=== PATIENT | female | born 1960 ===

== ENCOUNTER 2017-10-12 22:35 | Emergency (ER) | payer MEDICAID, OTHER ==
[2017-10-12 22:44] VITALS: PULSE 87; RESP 20
--- NOTE | 2017-10-12 23:09 | C.PDOC ---
History Of Present Illness 56 year old female, whose PMHx includes HTN, presents to the ED for evaluation of left lower quadrant abdominal pain which began after she ate some meat prior to arrival. Patient denies fever, chills, vomiting, or any other complaints at this time. Time Seen by Provider: 10/12/17 22:51 Chief Complaint (Nursing): Abdominal Pain History Per: Patient History/Exam Limitations: no limitations Onset/Duration Of Symptoms: Hrs Current Symptoms Are (Timing): Still Present Context: Food Location Of Pain/Discomfort: LLQ Radiation Of Pain To:: None Quality Of Discomfort: "Pain" Associated Symptoms: denies: Fever, Chills Exacerbating Factors: Food Additional History Per: Patient Abnormal Vaginal Bleeding: No Past Medical History Reviewed: Historical Data, Nursing Documentation, Vital Signs Vital Signs: Last Vital Signs Temp 99 F 10/12/17 23:48 Pulse 87 10/12/17 23:48 Resp 20 10/12/17 23:48 BP 160/93 H 10/12/17 23:48 Pulse Ox 98 10/13/17 00:28 - Medical History PMH: HTN Surgical History: No Surg Hx - [facility] Procedures PERCUTAN NEEDLE BIOPSY OF BREAST (02/13/14) X-RAY NEC AND NOS (02/13/14) Family History: States: Unknown Family Hx - Social History Hx Alcohol Use: No Hx Substance Use: No - Immunization History Hx Tetanus Toxoid Vaccination: No Hx Influenza Vaccination: No Hx Pneumococcal Vaccination: No Review Of Systems Constitutional: Negative for: Fever, Chills Gastrointestinal: Positive for: Abdominal Pain (left lower quadrant ). Negative for: Nausea, Vomiting Physical Exam - Physical Exam Appears: Non-toxic, No Acute Distress Skin: Normal Color, Warm, Dry Oral Mucosa: Moist Neck: Supple Chest: Symmetrical, No Deformity, No Tenderness Cardiovascular: Rhythm Regular, No Murmur Respiratory: Normal Breath Sounds, No Rales, No Rhonchi, No Wheezing Gastrointestinal/Abdominal: Soft, Tenderness (left lower quadrant), No Guarding , No Rebound Extremity: Normal ROM, Capillary Refill (less than 2 seconds ) Neurological/Psych: Oriented x3, Normal Speech, Normal Cognition Gait: Steady ED Course And Treatment - Laboratory Results Result Diagrams: 10/12/17 23:10 10/12/17 23:10 O2 Sat by Pulse Oximetry: 98 (on RA) Pulse Ox Interpretation: Normal Medical Decision Making Medical Decision Making: ro divertiulitis, colitis renal stone Plan: * bloodwork * urinalysis * Toradol IVP * reassess and disposition Progress: Bloodwork and urinalysis ordered and reviewed. Toradol IVP administered. 1220: pt reassesed pain free Disposition - Disposition Referrals: Sabrina Huff MD [Staff Provider] - Valdez Huff MD [Staff Provider] - Disposition: HOME/ ROUTINE Disposition Time: 00:30 Condition: STABLE Additional Instructions: please see specialist. return to er with worsening symptoms or concerns. Prescriptions: Ibuprofen [Motrin Tab] 600 mg PO Q8 PRN #15 tab PRN Reason: Pain, Moderate (4-7) Tamsulosin [Flomax] 0.4 mg PO DAILY #10 cap Instructions: Kidney Stones (DC), Acute Abdominal Pain (ED) Forms: Who[employer] (Czech) Print Language: AMHARIC - Clinical Impression Clinical Impression: Abdominal pain - Scribe Statement The provider has reviewed the documentation as recorded by the Scribe (Nasra Keller) Provider Attestation: All medical record entries made by the Scribe were at my direction and personally dictated by me. I have reviewed the chart and agree that the record accurately reflects my personal performance of the history, physical exam, medical decision making, and the department course for this patient. I have also personally directed, reviewed, and agree with the discharge instructions and disposition.
[2017-10-12 23:16] LABS: BASO # 0.1 K/uL (0.0-0.2); EOS # 0.3 K/uL (0.0-0.7)
[2017-10-12 23:20] LABS: HCG,QUALITATIVE URINE NEGATIVE (NEGATIVE)
[2017-10-12 23:21] LABS: BASO % 1.3 % (0.0-2.0); EOS % 3.2 % (0.0-4.0); HEMOGLOBIN 12.4 g/dL (11.0-16.0); LYMPH # 3.2 K/uL (1.0-4.3); LYMPH % 37.5 % (20.0-40.0); MEAN CELL VOLUME 93.1 fL (81.0-99.0); MEAN CORPUSCULAR HEMOGLOBIN 32.6 pg (27.0-31.0); MEAN PLATELET VOLUME 10.2 fL (7.2-11.7); MONO % 11.8 % (0.0-10.0); NEUT # 3.9 K/uL (1.8-7.0); NEUT % 46.2 % (50.0-75.0); RBC 3.82 Mil/uL (3.80-5.20); RED CELL DISTRIBUTION WIDTH 13.2 % (11.5-14.5); WHITE BLOOD COUNT 8.5 K/uL (4.8-10.8)
[2017-10-12 23:25] LABS: PROTHROMBIN TIME 11.1 SECONDS (9.7-12.2)
[2017-10-12 23:28] LABS: ALB/GLOB RATIO 1.1 (1.0-2.1); ALBUMIN 4.6 g/dL (3.5-5.0); ALT/SGPT 37 U/L (9-52); AST/SGOT 57 U/L (14-36); BLOOD UREA NITROGEN 29 mg/dL (7-17); CALCIUM 8.9 mg/dl (8.6-10.4); GFR AFRICAN-AMERICAN > 60; GFR NON-AFRICAN AMERICAN > 60; LIPASE 141 U/L (23-300)
[2017-10-12 23:41] LABS: SQUAMOUS EPITHIAL 2 /hpf (0-5); URINE BACTERIA RARE (<OCC); URINE BILIRUBIN NEGATIVE (NEGATIVE); URINE BLOOD 2+ (NEGATIVE); URINE CLARITY Clear (Clear); URINE COLOR Straw (YELLOW); URINE GLUCOSE (UA) NORMAL (Normal); URINE LEUKOCYTE ESTERASE NEG Leu/uL (Negative); URINE NITRATE NEGATIVE (NEGATIVE); URINE PROTEIN NEGATIVE (NEGATIVE); URINE UROBILINOGEN NORMAL mg/dL (0.2-1.0)
[2017-10-12] MEDS ORDERED: Iohexol 350mg/ml 100 ML ONE (23:44)
[2017-10-12 23:49] VITALS: BP 160/93; TEMP 99
[2017-10-13 00:28] VITALS: O2SAT 98
--- NOTE | 2017-10-13 00:29 | CT ---
EXAM: CT Abdomen and Pelvis With Intravenous Contrast CLINICAL HISTORY: 56 years old, female; Pain; Abdominal pain; Additional info: Llq pain TECHNIQUE: Axial computed tomography images of the abdomen and pelvis with intravenous contrast. All CT scans at this facility use one or more dose reduction techniques, viz.: automated exposure control; ma/kV adjustment per patient size (including targeted exams where dose is matched to indication; i.e. head); or iterative reconstruction technique. Coronal and sagittal reformatted images were created and reviewed. CONTRAST: 100 mL of OMNIPAQUE administered intravenously. COMPARISON: No relevant prior studies available. FINDINGS: Lower thorax: No acute findings. ABDOMEN: Liver: Mild fatty infiltration. Gallbladder and bile ducts: No calcified stones. No ductal dilation. Pancreas: No ductal dilation. No mass. Spleen: No splenomegaly. Adrenals: No mass. Kidneys and ureters: Delayed enhancement/excretion of LEFT kidney. Few small calculi within LEFT kidney. Mild pelvocaliectasis of LEFT kidney. Mildly dilated LEFT ureter. Stomach and bowel: Probable underdistention of LEFT colon. No definite mural thickening. No obstruction. Appendix: Normal caliber. No inflammation. PELVIS: Bladder: 0.2 x 0.2 x 0.2 cm calcification along posterior wall of bladder. Reproductive: Unremarkable as visualized. ABDOMEN and PELVIS: Intraperitoneal space: No significant fluid collection. No free air. Bones/joints: Degenerative changes of spine and sacroiliac joints. No acute fracture. Soft tissues: Tiny umbilical hernia containing fat. Vasculature: Minimal atherosclerotic disease. No aneurysm. Lymph nodes: No pathologically enlarged lymph nodes. IMPRESSION: 1. Bladder calcification, likely recently passed left ureteral calculus. 2. Incidental/non-acute findings are described above.
== END 2017-10-13 00:41 | disposition home or self-care (01) ==
LOC: C.ER 22:35
DX: R10.32 Left lower quadrant pain (principal)
CPT/HCPCS: 74177; 80053; 81001; 83690; 84703; 85025; 85610; 85730; 96374; 99284; J1885; Q9967

== ENCOUNTER 2018-06-15 21:57 | Emergency (ER) | payer MEDICAID, OTHER ==
[2018-06-15 22:41] VITALS: O2SAT 98
[2018-06-15 23:12] LABS: SQUAMOUS EPITHIAL 6 /hpf (0-5); URINE BACTERIA MOD (<OCC); URINE BILIRUBIN NEGATIVE (NEGATIVE); URINE BLOOD 3+ (NEGATIVE); URINE CLARITY Hazy (Clear); URINE COLOR Yellow (YELLOW); URINE GLUCOSE (UA) NORMAL (Normal); URINE LEUKOCYTE ESTERASE 3+ Leu/uL (Negative); URINE PROTEIN NEGATIVE (NEGATIVE); URINE UROBILINOGEN NORMAL mg/dL (0.2-1.0)
[2018-06-15 23:52] VITALS: BP 134/80; PULSE 84; RESP 18; TEMP 98.4
--- NOTE | 2018-06-15 23:52 | C.PDOC ---
History Of Present Illness The patient reports dysuria over the past 2-3 days which is associated with suprapubic abdominal pain and radiates to the lower back. Denies nausea, vomiting, rash, hematuria. Time Seen by Provider: 06/15/18 22:58 Chief Complaint (Nursing): Female Genitourinary History Per: Patient History/Exam Limitations: no limitations Onset/Duration Of Symptoms: Days (2-3) Current Symptoms Are (Timing): Still Present Quality Of Discomfort: "Pain" Associated Symptoms: Urinary Symptoms. denies: Nausea, Vomiting, Diarrhea Recent travel outside of the [place]: No Additional History Per: Patient Abnormal Vaginal Bleeding: No Past Medical History Reviewed: Historical Data, Nursing Documentation, Vital Signs Vital Signs: Last Vital Signs Temp 100 F H 06/15/18 22:36 Pulse 94 H 06/15/18 22:36 Resp 20 06/15/18 22:36 BP 151/98 H 06/15/18 22:36 Pulse Ox 98 06/15/18 22:36 - Medical History PMH: HTN Surgical History: No Surg Hx - [facility] Procedures PERCUTAN NEEDLE BIOPSY OF BREAST (02/13/14) X-RAY NEC AND NOS (02/13/14) Family History: States: Unknown Family Hx - Social History Hx Alcohol Use: No Hx Substance Use: No - Immunization History Hx Tetanus Toxoid Vaccination: No Hx Influenza Vaccination: No Hx Pneumococcal Vaccination: No Review Of Systems Constitutional: Negative for: Fever, Chills Gastrointestinal: Positive for: Abdominal Pain. Negative for: Nausea, Vomiting Genitourinary: Positive for: Dysuria. Negative for: Hematuria Musculoskeletal: Positive for: Back Pain Skin: Negative for: Rash Neurological: Negative for: Weakness, Numbness Physical Exam - Physical Exam Appears: Non-toxic, No Acute Distress Skin: Normal Color, Warm, Dry Head: Atraumatic, Normacephalic Eye(s): bilateral: Normal Inspection Neck: Normal ROM, Supple Chest: Symmetrical Cardiovascular: Rhythm Regular Respiratory: Normal Breath Sounds, No Rales, No Rhonchi, No Wheezing Gastrointestinal/Abdominal: Soft, Tenderness (suprapubic ), No Guarding, No Rebound Back: No CVA Tenderness Extremity: Normal ROM, No Tenderness, No Swelling Neurological/Psych: Oriented x3, Normal Speech Gait: Steady ED Course And Treatment O2 Sat by Pulse Oximetry: 98 (ON RA) Pulse Ox Interpretation: Normal Medical Decision Making Medical Decision Making: Plan: * Cipro 500 mg PO * Motrin 600 mg PO * Pyridium 200 mg PO * Urine culture Disposition - Disposition Referrals: Bart Ramirez MD [Staff Provider] - Disposition: HOME/ ROUTINE Disposition Time: 23:50 Condition: GOOD Additional Instructions: Follow up with the medical doctor within 1-2 days without fail. return if worsened. Prescriptions: Ciprofloxacin [Cipro] 1 tab PO BID #14 tab Ibuprofen [Motrin] 1 tab PO TID PRN #30 tab PRN Reason: Pain Phenazopyridine HCl [Pyridium] 200 mg PO TID #7 tablet Instructions: Urinary Tract Infections in Adults Forms: [employer] (Czech) - Clinical Impression Clinical Impression: UTI (urinary tract infection)
== END 2018-06-15 23:58 | disposition home or self-care (01) ==
LOC: C.ER 21:57
DX: N39.0 Urinary tract infection, site not specified (principal)

== ENCOUNTER 2019-01-16 15:46 | Inpatient (IN) | payer MEDICAID, OTHER ==
--- NOTE | 2019-01-16 18:06 | C.PDOC ---
History Of Present Illness 58 y/o female presents to ED with complaints of chest pain since yesterday, which she describes as chest tightness. Denies fever, chills, nausea, vomiting, dizziness, diaphoresis, or other complaints. Patient reports recent stress test but is unsure of the results. Time Seen by Provider: 01/16/19 17:54 Chief Complaint (Nursing): Chest Pain History Per: Patient History/Exam Limitations: no limitations Onset/Duration Of Symptoms: Days Current Symptoms Are (Timing): Still Present Past Medical History Reviewed: Historical Data, Nursing Documentation, Vital Signs Vital Signs: Last Vital Signs Temp 98.5 F 01/16/19 15:48 Pulse 88 01/16/19 15:48 Resp 18 01/16/19 15:48 BP 162/94 H 01/16/19 15:48 Pulse Ox 96 01/16/19 15:48 Primary Care Provider: Bart Ramirez - Medical History PMH: HTN - [facility] Procedures PERCUTAN NEEDLE BIOPSY OF BREAST (02/13/14) X-RAY NEC AND NOS (02/13/14) Family History: States: No Known Family Hx - Social History Hx Alcohol Use: No Hx Substance Use: No - Immunization History Hx Tetanus Toxoid Vaccination: No Hx Influenza Vaccination: No Hx Pneumococcal Vaccination: No Review Of Systems Except As Marked, All Systems Reviewed And Found Negative. Constitutional: Negative for: Fever, Chills, Sweats Cardiovascular: Positive for: Chest Pain Respiratory: Negative for: Cough Gastrointestinal: Negative for: Nausea, Vomiting, Abdominal Pain Musculoskeletal: Negative for: Neck Pain Neurological: Negative for: Headache, Dizziness Physical Exam - Physical Exam Appears: Non-toxic, No Acute Distress Skin: Warm, Dry Head: Normacephalic Eye(s): bilateral: Normal Inspection Oral Mucosa: Moist Neck: Supple Cardiovascular: Rhythm Regular, No Murmur Respiratory: Normal Breath Sounds, No Rales, No Rhonchi, No Wheezing Gastrointestinal/Abdominal: Soft, No Tenderness Extremity: Bilateral: Atraumatic, Normal ROM Neurological/Psych: Oriented x3, Normal Speech, Normal Cognition ED Course And Treatment O2 Sat by Pulse Oximetry: 96 (RA) Pulse Ox Interpretation: Normal Medical Decision Making Medical Decision Making: Plan: --EKG --Labs --Aspirin 325 mg PO --UA Disposition - Disposition - Scribe Statement The provider has reviewed the documentation as recorded by the Scribe Sobeida Daus Provider Attestation: All medical record entries made by the Monse were at my direction and personally dictated by me. I have reviewed the chart and agree that the record accurately reflects my personal performance of the history, physical exam, medical decision making, and the department course for this patient. I have also personally directed, reviewed, and agree with the discharge instructions and disposition.
[2019-01-16 18:38] LABS: EOS # 0.1 K/uL (0.0-0.7)
[2019-01-16 18:43] LABS: INR 1.1; PROTHROMBIN TIME 11.9 SECONDS (9.7-12.2)
[2019-01-16 18:48] LABS: ALB/GLOB RATIO 1.2 (1.0-2.1); ALBUMIN 4.4 g/dL (3.5-5.0); ALT/SGPT 38 U/L (9-52); AST/SGOT 31 U/L (14-36); BASO # 0.1 K/uL (0.0-0.2); BASO % 0.7 % (0.0-2.0); BLOOD UREA NITROGEN 20 mg/dL (7-17); CALCIUM 10.2 mg/dl (8.6-10.4); EOS % 1.3 % (0.0-4.0); GFR NON-AFRICAN AMERICAN > 60; HEMOGLOBIN 13.4 g/dL (11.0-16.0); MEAN CELL VOLUME 95.5 fL (81.0-99.0); MEAN CORPUSCULAR HEMOGLOBIN 32.9 pg (27.0-31.0); MEAN CORPUSCULAR HGB CONC 34.5 g/dL (33.0-37.0); MONO # 0.8 K/uL (0.0-0.8); MONO % 8.6 % (0.0-10.0); NEUT # 5.1 K/uL (1.8-7.0); NEUT % 56.4 % (50.0-75.0); NRBC % 0.2 % (0.0-2.0); RBC 4.06 Mil/uL (3.80-5.20); RED CELL DISTRIBUTION WIDTH 13.8 % (11.5-14.5); WHITE BLOOD COUNT 9.1 K/uL (4.8-10.8)
[2019-01-16] MEDS ORDERED: Potassium Chloride 20 mEq ER Tab PO STA (18:50)
[2019-01-16 18:59] LABS: B-TYPE NATRIURETIC PEPTIDE 147 pg/mL (0-900)
[2019-01-16] MEDS ORDERED: Heparin25000 units/250ml 1/2NS 25,000 UNITS/250 ML BAG IV ONE ×2 (19:04→19:45)
[2019-01-16 19:21] LABS: MEAN PLATELET VOLUME 8.8 fL (7.2-11.7)
[2019-01-16] MEDS ORDERED: Potassium Chloride 20 mEq ER Tab PO ONE (19:57)
[2019-01-16] MEDS ORDERED: Metoprolol 1 mg/ml Inj IVP ONE (20:02)
--- NOTE | 2019-01-16 20:10 | CP.PCM.HP ---
<Polly Perez - Last Filed: 01/16/19 23:23> History of Present Illness - History of Present Illness History of Present Illness: Patient is a 58 year old female w/ pmhx of HTN, HLD who presents to ED for evaluation of chest pain and shortness of breath that began yesterday. Patient reports shortness of breath chest tightness is associated with activity such as walking, and when lying down. She reports symptoms have worsened since yesterday and denies having these symptoms in the past. Patient reports compliance with all medications as prescribed, and had last seen her PMD 1 week ago where an EKG and stress test were performed; pt does notyet have results. Denies headache, vision changes, neck/arm pain, cough, congestion, nausea, abdominal pain. PMD: Dr. Cosme PMHx: HTN, HLD PSHx: hysterectomy Meds: Losartan/HCTZ allergies: denies SocHx: denies alcohol/tobacco/drugs FamHx: Mom with HTN and heart dz, at 40s Present on Admission - Present on Admission Any Indicators Present on Admission: No Review of Systems - Constitutional Constitutional: absent: Headache - EENT Eyes: absent: Blurred Vision Nose/Mouth/Throat: absent: Nasal Congestion, Sore Throat - Cardiovascular Cardiovascular: Chest Pain, Chest Pain with Activity, Dyspnea on Exertion, Lightheadedness - Respiratory Respiratory: absent: Cough, Chest Congestion - Gastrointestinal Gastrointestinal: absent: Abdominal Pain, Constipation, Diarrhea, Nausea, Vomiting - Genitourinary Genitourinary: absent: Dysuria - Neurological Neurological: absent: Vertigo, Weakness - Psychiatric Psychiatric: absent: Anxiety Past Patient History - Past Social History Smoking Status: Never Smoked - CARDIAC Hx Hypertension: Yes - PSYCHIATRIC Hx Substance Use: No - SURGICAL HISTORY Hx Surgeries: Yes Other/Comment: FIBROMA - ANESTHESIA Hx Anesthesia: No Meds Allergies/Adverse Reactions: Allergies Allergy/AdvReac Type Severity Reaction Status Date / Time No Known Allergies Allergy Verified 01/16/19 15:51 Physical Exam - Constitutional Appears: Non-toxic, No Acute Distress - Head Exam Head Exam: ATRAUMATIC, NORMAL INSPECTION, NORMOCEPHALIC - Eye Exam Eye Exam: EOMI, Normal appearance Pupil Exam: NORMAL ACCOMODATION - ENT Exam ENT Exam: Mucous Membranes Moist, Normal Exam - Neck Exam Neck exam: Positive for: Normal Inspection - Respiratory Exam Respiratory Exam: Clear to Auscultation Bilateral, NORMAL BREATHING PATTERN - Cardiovascular Exam Cardiovascular Exam: Tachycardia, +S1, +S2 - GI/Abdominal Exam GI & Abdominal Exam: Normal Bowel Sounds, Soft. absent: Tenderness - Rectal Exam Rectal Exam: NORMAL INSPECTION - Extremities Exam Extremities exam: Positive for: normal inspection. Negative for: calf tenderness, pedal edema - Back Exam Back exam: NORMAL INSPECTION - Neurological Exam Neurological exam: Alert, Oriented x3 - Psychiatric Exam Psychiatric exam: Normal Affect, Normal Mood - Skin Skin Exam: Dry, Intact, Normal Color, Warm Results - Vital Signs Recent Vital Signs: Last Vital Signs Temp 98.4 F 01/16/19 18:26 Pulse 78 01/16/19 18:26 Resp 20 01/16/19 18:26 BP 178/104 H 01/16/19 18:26 Pulse Ox 96 01/16/19 18:26 - Labs Result Diagrams: 01/16/19 18:23 01/16/19 18:23 Labs: Laboratory Results - last 24 hr 01/16/19 01/16/19 01/16/19 18:23 18:23 18:23 WBC 9.1 RBC 4.06 Hgb 13.4 Hct 38.8 MCV 95.5 D MCH 32.9 H MCHC 34.5 RDW 13.8 Plt Count 77 L MPV 8.8 Neut % (Auto) 56.4 Lymph % (Auto) 33.0 Terry % (Auto) 8.6 Eos % (Auto) 1.3 Baso % (Auto) 0.7 Neut # (Auto) 5.1 Lymph # (Auto) 3.0 Terry # (Auto) 0.8 Eos # (Auto) 0.1 Baso # (Auto) 0.1 PT 11.9 INR 1.1 APTT 33.0 Sodium 138 Potassium 3.1 L Chloride 95 L Carbon Dioxide 31 H Anion Gap 15 BUN 20 H Creatinine 0.5 L Est GFR ( Amer) > 60 Est GFR (Non-Af Amer) > 60 Random Glucose 107 H Calcium 10.2 Total Bilirubin 0.5 AST 31 ALT 38 Alkaline Phosphatase 90 Troponin I < 0.0120 NT-Pro-B Natriuret Pep 147 Total Protein 8.0 Albumin 4.4 Globulin 3.6 Albumin/Globulin Ratio 1.2 Assessment & Plan - Assessment and Plan (Free Text) Assessment: 58 year old female with pmhx of HTN, HLD admitted for further evaluation of exertional dyspnea and chest pain Plan: Exertional Dyspnea and chest pain R/O ACS -EKG: NSR @92, moderate voltage criteria for LVH, may be normal variant -monitor on telemetry -TIKA ordered, trop negative in ED -f/u lipid, TSH, hgb a1c, UDS -Heparin ggt -plavix 75mg qd -ASA 81mg qd -O2 NC prn -Cardio consult, Dr. Sandhu Hypokalemia -replete as needed HTN -poorly controlled, hypertensive in ED -given lopressor 5mg IVP -continue home meds losartan/HCTZ 100/25 -HHD, lowNa+ HLD -unknown home med -starting crestor 5mg HS -f/u lipid panel Ppx GI: Pepcid VTE: on heparin ggt Discussed with Dr. Marvin -Polly Perez, PGY-1 <Clarisa Marvin - Last Filed: 01/17/19 00:02> Results - Vital Signs Recent Vital Signs: Last Vital Signs Temp 98.2 F 01/16/19 19:56 Pulse 86 01/16/19 21:49 Resp 20 01/16/19 21:49 BP 151/100 H 01/16/19 23:00 Pulse Ox 97 01/16/19 21:49 - Labs Result Diagrams: 01/16/19 18:23 01/16/19 18:23 Labs: Laboratory Results - last 24 hr 01/16/19 01/16/19 01/16/19 18:23 18:23 18:23 WBC 9.1 RBC 4.06 Hgb 13.4 Hct 38.8 MCV 95.5 D MCH 32.9 H MCHC 34.5 RDW 13.8 Plt Count 77 L MPV 8.8 Neut % (Auto) 56.4 Lymph % (Auto) 33.0 Terry % (Auto) 8.6 Eos % (Auto) 1.3 Baso % (Auto) 0.7 Neut # (Auto) 5.1 Lymph # (Auto) 3.0 Terry # (Auto) 0.8 Eos # (Auto) 0.1 Baso # (Auto) 0.1 PT 11.9 INR 1.1 APTT 33.0 Sodium 138 Potassium 3.1 L Chloride 95 L Carbon Dioxide 31 H Anion Gap 15 BUN 20 H Creatinine 0.5 L Est GFR ( Amer) > 60 Est GFR (Non-Af Amer) > 60 Random Glucose 107 H Hemoglobin A1c Calcium 10.2 Total Bilirubin 0.5 AST 31 ALT 38 Alkaline Phosphatase 90 Troponin I < 0.0120 NT-Pro-B Natriuret Pep 147 Total Protein 8.0 Albumin 4.4 Globulin 3.6 Albumin/Globulin Ratio 1.2 Triglycerides Cholesterol LDL Cholesterol Direct HDL Cholesterol Urine Color Urine Clarity Urine pH Ur Specific [place] Urine Protein Urine Glucose (UA) Urine Ketones Urine Blood Urine Nitrate Urine Bilirubin Urine Urobilinogen Ur Leukocyte Esterase Urine WBC (Auto) Urine RBC (Auto) Ur Squamous Epith Cells Urine Bacteria Urine Sperm (Auto) Urine Opiates Screen Urine Methadone Screen Ur Barbiturates Screen Ur Phencyclidine Scrn Ur Amphetamines Screen U Benzodiazepines Scrn U Oth Cocaine Metabols U Cannabinoids Screen 01/16/19 01/16/19 01/16/19 22:51 22:51 23:23 WBC RBC Hgb Hct MCV MCH MCHC RDW Plt Count MPV Neut % (Auto) Lymph % (Auto) Terry % (Auto) Eos % (Auto) Baso % (Auto) Neut # (Auto) Lymph # (Auto) Terry # (Auto) Eos # (Auto) Baso # (Auto) PT INR APTT Sodium Potassium Chloride Carbon Dioxide Anion Gap BUN Creatinine Est GFR ( Amer) Est GFR (Non-Af Amer) Random Glucose Hemoglobin A1c Calcium Total Bilirubin AST ALT Alkaline Phosphatase Troponin I NT-Pro-B Natriuret Pep Total Protein Albumin Globulin Albumin/Globulin Ratio Triglycerides 209 H Cholesterol 211 H LDL Cholesterol Direct 130 H HDL Cholesterol 63 Urine Color Yellow Urine Clarity Clear Urine pH 7.0 Ur Specific [place] 1.014 Urine Protein Negative Urine Glucose (UA) Normal Urine Ketones Negative Urine Blood Negative Urine Nitrate Negative Urine Bilirubin Negative Urine Urobilinogen Normal Ur Leukocyte Esterase Trace Urine WBC (Auto) 11 H Urine RBC (Auto) 1 Ur Squamous Epith Cells 4 Urine Bacteria Occ H Urine Sperm (Auto) Occ Urine Opiates Screen Negative Urine Methadone Screen Negative Ur Barbiturates Screen Negative Ur Phencyclidine Scrn Negative Ur Amphetamines Screen Negative U Benzodiazepines Scrn Negative U Oth Cocaine Metabols Negative U Cannabinoids Screen Negative 01/16/19 23:23 WBC RBC Hgb Hct MCV MCH MCHC RDW Plt Count MPV Neut % (Auto) Lymph % (Auto) Terry % (Auto) Eos % (Auto) Baso % (Auto) Neut # (Auto) Lymph # (Auto) Terry # (Auto) Eos # (Auto) Baso # (Auto) PT INR APTT Sodium Potassium Chloride Carbon Dioxide Anion Gap BUN Creatinine Est GFR ( Amer) Est GFR (Non-Af Amer) Random Glucose Hemoglobin A1c 5.6 Calcium Total Bilirubin AST ALT Alkaline Phosphatase Troponin I NT-Pro-B Natriuret Pep Total Protein Albumin Globulin Albumin/Globulin Ratio Triglycerides Cholesterol LDL Cholesterol Direct HDL Cholesterol Urine Color Urine Clarity Urine pH Ur Specific [place] Urine Protein Urine Glucose (UA) Urine Ketones Urine Blood Urine Nitrate Urine Bilirubin Urine Urobilinogen Ur Leukocyte Esterase Urine WBC (Auto) Urine RBC (Auto) Ur Squamous Epith Cells Urine Bacteria Urine Sperm (Auto) Urine Opiates Screen Urine Methadone Screen Ur Barbiturates Screen Ur Phencyclidine Scrn Ur Amphetamines Screen U Benzodiazepines Scrn U Oth Cocaine Metabols U Cannabinoids Screen Attending/Attestation - Attestation I have personally seen and examined this patient.: Yes I have fully participated in the care of the patient.: Yes I have reviewed all pertinent clinical information: Yes Notes (Text): 01/17/19 00:02 aniyah seen and managed this pt with resident.
[2019-01-16] MEDS ORDERED: Metoprolol 1 mg/ml Inj ONE (20:13)
[2019-01-16 21:49] VITALS: RESP 20
[2019-01-16 23:08] LABS: URINE BACTERIA OCC (<OCC); URINE BILIRUBIN NEGATIVE (NEGATIVE); URINE BLOOD NEGATIVE (NEGATIVE); URINE CLARITY Clear (Clear); URINE COLOR Yellow (YELLOW); URINE GLUCOSE (UA) NORMAL (Normal); URINE LEUKOCYTE ESTERASE TRACE Leu/uL (Negative); URINE PROTEIN NEGATIVE (NEGATIVE); URINE UROBILINOGEN NORMAL mg/dL (0.2-1.0)
[2019-01-16 23:09] LABS: SPERM URINE OCC /hpf; SQUAMOUS EPITHIAL 4 /hpf (0-5)
[2019-01-16 23:22] LABS: BARBITURATES, UR NEGATIVE (NEGATIVE); BENZODIAZEPINES, UR NEGATIVE (NEGATIVE); OPIATES, UR NEGATIVE (NEGATIVE); PHENCYCLIDINE, UR NEGATIVE (NEGATIVE)
[2019-01-17 07:58] VITALS: BP 144/90; TEMP 98.2; O2SAT 95
[2019-01-17 08:37] LABS: BASO # 0.1 K/uL (0.0-0.2); BASO % 1.1 % (0.0-2.0); EOS # 0.1 K/uL (0.0-0.7); EOS % 2.2 % (0.0-4.0); HEMOGLOBIN 12.2 g/dL (11.0-16.0); LYMPH # 2.5 K/uL (1.0-4.3); LYMPH % 43.6 % (20.0-40.0); MEAN CELL VOLUME 96.8 fL (81.0-99.0); MEAN CORPUSCULAR HEMOGLOBIN 32.9 pg (27.0-31.0); MEAN PLATELET VOLUME 8.5 fL (7.2-11.7); MONO # 0.4 K/uL (0.0-0.8); MONO % 6.8 % (0.0-10.0); NEUT # 2.7 K/uL (1.8-7.0); NEUT % 46.3 % (50.0-75.0); NRBC % 0.1 % (0.0-2.0); PLATELET COUNT 164 K/uL (130-400); RBC 3.69 Mil/uL (3.80-5.20); RED CELL DISTRIBUTION WIDTH 13.4 % (11.5-14.5); WHITE BLOOD COUNT 5.8 K/uL (4.8-10.8)
[2019-01-17 08:48] LABS: ALB/GLOB RATIO 1.2 (1.0-2.1); ALT/SGPT 38 U/L (9-52); AST/SGOT 25 U/L (14-36); BLOOD UREA NITROGEN 19 mg/dL (7-17); CALCIUM 9.7 mg/dl (8.6-10.4); GFR NON-AFRICAN AMERICAN > 60
[2019-01-17 09:01] LABS: CK-MB 0.23 ng/mL (0.0-3.38)
[2019-01-17] MEDS ORDERED: Potassium Chloride 20 mEq ER Tab PO STA (09:12)
[2019-01-17 09:18] LABS: HEPATITIS B SURFACE AG Negative (NEGATIVE)
[2019-01-17 09:24] LABS: HEPATITIS A IGM NEGATIVE (NEGATIVE); HEPATITIS B CORE AB NEGATIVE (NEGATIVE)
[2019-01-17 09:35] LABS: HEPATITIS C ANTIBODY NEGATIVE (NEGATIVE)
[2019-01-17] MEDS ORDERED: Magnesium Sulfate 1 gm in D5W 1 GM/100 ML BAG IVPB ONE (10:03)
[2019-01-17 10:11] LABS: EOSINOPHIL 1 % (0-4); LYMPHOCYTE 45 % (20-40); MONOCYTE 8 % (0-10); NEUTROPHIL 45 % (50-75); PLATELET ESTIMATE NORMAL (NORMAL); REACTIVE LYMPHOCYTES 1 % (0-0); TOTAL CELLS COUNTED 100
[2019-01-17 10:12] LABS: STOMATOCYTES SLIGHT
--- NOTE | 2019-01-17 11:34 | CP.PCM.DIS ---
Provider - Provider Date of Admission: 01/16/19 19:42 Attending physician: Clarisa Marvin MD Consults: 01/16/19 20:08 Cardiology Consult Routine Comment: Consulting Provider: Gasper Sandhu Consulting Physician: Gasper Sandhu Reason for Consult: chest pain 01/17/19 07:15 Hematology Oncology Consult Routine Comment: Consulting Provider: Guido Milton Consulting Physician: Guido Milton Reason for Consult: thrombocytopenia, unclear origin Time Spent in preparation of Discharge (in minutes): 35 Diagnosis - Discharge Diagnosis (1) Atypical chest pain Status: Resolved (2) History of hypertension Status: Chronic (3) History of hypercholesterolemia Status: Chronic Hospital Course - Lab Results Lab Results: Most Recent Lab Values WBC 5.8 K/uL (4.8-10.8) 01/17/19 08:10 RBC 3.69 Mil/uL (3.80-5.20) L 01/17/19 08:10 Hgb 12.2 g/dL (11.0-16.0) 01/17/19 08:10 Hct 35.7 % (34.0-47.0) 01/17/19 08:10 MCV 96.8 fL (81.0-99.0) 01/17/19 08:10 MCH 32.9 pg (27.0-31.0) H 01/17/19 08:10 MCHC 34.0 g/dL (33.0-37.0) 01/17/19 08:10 RDW 13.4 % (11.5-14.5) 01/17/19 08:10 Plt Count 164 K/uL (130-400) 01/17/19 08:10 MPV 8.5 fL (7.2-11.7) 01/17/19 08:10 Neut % (Auto) 46.3 % (50.0-75.0) L 01/17/19 08:10 Lymph % (Auto) 43.6 % (20.0-40.0) H 01/17/19 08:10 Rutherford % (Auto) 6.8 % (0.0-10.0) 01/17/19 08:10 Eos % (Auto) 2.2 % (0.0-4.0) 01/17/19 08:10 Baso % (Auto) 1.1 % (0.0-2.0) 01/17/19 08:10 Neut # (Auto) 2.7 K/uL (1.8-7.0) 01/17/19 08:10 Lymph # (Auto) 2.5 K/uL (1.0-4.3) 01/17/19 08:10 Rutherford # (Auto) 0.4 K/uL (0.0-0.8) 01/17/19 08:10 Eos # (Auto) 0.1 K/uL (0.0-0.7) 01/17/19 08:10 Baso # (Auto) 0.1 K/uL (0.0-0.2) 01/17/19 08:10 Neutrophils % (Manual) 45 % (50-75) L 01/17/19 08:10 Lymphocytes % (Manual) 45 % (20-40) H 01/17/19 08:10 Reactive Lymphs % 1 % (0-0) H 01/17/19 08:10 Monocytes % (Manual) 8 % (0-10) 01/17/19 08:10 Eosinophils % (Manual) 1 % (0-4) 01/17/19 08:10 Platelet Estimate Normal (NORMAL) 01/17/19 08:10 Stomatocytes Slight 01/17/19 08:10 PT 11.9 SECONDS (9.7-12.2) 01/16/19 18:23 INR 1.1 01/16/19 18:23 APTT 44.0 SECONDS (21-34) H D 01/17/19 09:55 Sodium 140 mmol/L (132-148) 01/17/19 08:10 Potassium 3.3 mmol/L (3.6-5.2) L 01/17/19 08:10 Chloride 99 mmol/L (98-107) 01/17/19 08:10 Carbon Dioxide 30 mmol/L (22-30) 01/17/19 08:10 Anion Gap 15 (10-20) 01/17/19 08:10 BUN 19 mg/dL (7-17) H 01/17/19 08:10 Creatinine 0.6 mg/dL (0.7-1.2) L 01/17/19 08:10 Est GFR ( Amer) > 60 01/17/19 08:10 Est GFR (Non-Af Amer) > 60 01/17/19 08:10 Random Glucose 126 mg/dL (65-105) H 01/17/19 08:10 Hemoglobin A1c 5.6 % (4.2-6.5) 01/16/19 23:23 Calcium 9.7 mg/dl (8.6-10.4) 01/17/19 08:10 Phosphorus 4.2 mg/dL (2.5-4.5) 01/17/19 08:10 Magnesium 1.7 mg/dL (1.6-2.3) 01/17/19 08:10 Total Bilirubin 0.6 mg/dL (0.2-1.3) 01/17/19 08:10 AST 25 U/L (14-36) 01/17/19 08:10 ALT 38 U/L (9-52) 01/17/19 08:10 Alkaline Phosphatase 77 U/L (38-126) 01/17/19 08:10 Total Creatine Kinase 54 U/L (30-135) 01/17/19 08:10 CK-MB (Mass) 0.23 ng/mL (0.0-3.38) 01/17/19 08:10 Troponin I < 0.0120 ng/mL (0.00-0.120) 01/17/19 08:10 NT-Pro-B Natriuret Pep 147 pg/mL (0-900) 01/16/19 18:23 Total Protein 7.1 g/dL (6.3-8.3) 01/17/19 08:10 Albumin 4.0 g/dL (3.5-5.0) 01/17/19 08:10 Globulin 3.2 gm/dL (2.2-3.9) 01/17/19 08:10 Albumin/Globulin Ratio 1.2 (1.0-2.1) 01/17/19 08:10 Triglycerides 209 mg/dL (0-149) H 01/16/19 23:23 Cholesterol 211 mg/dL (0-199) H 01/16/19 23:23 LDL Cholesterol Direct 130 mg/dL (0-129) H 01/16/19 23:23 HDL Cholesterol 63 mg/dL (30-70) 01/16/19 23:23 TSH 3rd Generation 1.53 mIU/L (0.46-4.68) 01/16/19 23:23 Urine Color Yellow (YELLOW) 01/16/19 22:51 Urine Clarity Clear (Clear) 01/16/19 22:51 Urine pH 7.0 (5.0-8.0) 01/16/19 22:51 Ur Specific Bradley 1.014 (1.003-1.030) 01/16/19 22:51 Urine Protein Negative mg/dL (NEGATIVE) 01/16/19 22:51 Urine Glucose (UA) Normal mg/dL (Normal) 01/16/19 22:51 Urine Ketones Negative mg/dL (NEGATIVE) 01/16/19 22:51 Urine Blood Negative (NEGATIVE) 01/16/19 22:51 Urine Nitrate Negative (NEGATIVE) 01/16/19 22:51 Urine Bilirubin Negative (NEGATIVE) 01/16/19 22:51 Urine Urobilinogen Normal mg/dL (0.2-1.0) 01/16/19 22:51 Ur Leukocyte Esterase Trace Abel/uL (Negative) 01/16/19 22:51 Urine WBC (Auto) 11 /hpf (0-5) H 01/16/19 22:51 Urine RBC (Auto) 1 /hpf (0-3) 01/16/19 22:51 Ur Squamous Epith Cells 4 /hpf (0-5) 01/16/19 22:51 Urine Bacteria Occ (<OCC) H 01/16/19 22:51 Urine Sperm (Auto) Occ /hpf (NONE) 01/16/19 22:51 Urine Opiates Screen Negative (NEGATIVE) 01/16/19 22:51 Urine Methadone Screen Negative (NEGATIVE) 01/16/19 22:51 Ur Barbiturates Screen Negative (NEGATIVE) 01/16/19 22:51 Ur Phencyclidine Scrn Negative (NEGATIVE) 01/16/19 22:51 Ur Amphetamines Screen Negative (NEGATIVE) 01/16/19 22:51 U Benzodiazepines Scrn Negative (NEGATIVE) 01/16/19 22:51 U Oth Cocaine Metabols Negative (NEGATIVE) 01/16/19 22:51 U Cannabinoids Screen Negative (NEGATIVE) 01/16/19 22:51 Hepatitis A IgM Ab Negative (NEGATIVE) 01/17/19 08:10 Hep Bs Antigen Negative (NEGATIVE) 01/17/19 08:10 Hep B Core IgM Ab Negative (NEGATIVE) 01/17/19 08:10 Hepatitis C Antibody Negative (NEGATIVE) 01/17/19 08:10 HIV 1&2 Antibody Screen Negative (NEGATIVE) 01/17/19 08:10 - Hospital Course Hospital Course: On admission: Patient is a 58 year old female w/ pmhx of HTN, HLD who presents to ED for evaluation of chest pain and shortness of breath that began yesterday. Patient reports shortness of breath chest tightness is associated with activity such as walking, and when lying down. She reports symptoms have worsened since yesterday and denies having these symptoms in the past. Patient reports compliance with all medications as prescribed, and had last seen her PMD 1 week ago where an EKG and stress test were performed; pt does notyet have results. Denies headache, vision changes, neck/arm pain, cough, congestion, nausea, abdominal pain. Hospital course: EKG showed inverted t waves in leads III, aVF, V1. Dr. Sandhu, cardiology, consulted who recommended DAPT and heparin gtt. Pt's EKG changes normalized on subsequent EKGs. Troponin x3 normal. UDS negative. CXR showed atherosclerotic calcifications of the aorta. Chest pain and dyspnea resolved overnight. Pt noted to be thrombocytopenic at 77 on admission, repeat was normal. HIV, Acute hepatitis panel was negative. Abdominal US showed fatty liver, no splenomegaly. Peripheral smear showed normal platelets. Case discussed with Dr. Bart Ramirez, who reports that pt's outpatient testing including nuclear stress test was normal. Pt will follow up with him in his office on [place] 01/19/19 at 9 am, and there will be no changes to her medications on discharge. Pt given referral for Dr. Milton (heme/onc) for On discharge interview, pt reports feeling better. Denies fever, chills, chest pain, sob, palpitations, headache, dizziness, lightheadedness, weakness, abdomnial pain, n/v/d. Normal bowel function endorsed. No urinary complaints. This is a summary of the hospital course. Please see EMR for full details. Discharge Exam - Head Exam Head Exam: ATRAUMATIC, NORMAL INSPECTION, NORMOCEPHALIC - Eye Exam Eye Exam: EOMI, Normal appearance - ENT Exam ENT Exam: Mucous Membranes Moist - Respiratory Exam Respiratory Exam: Clear to PA & Lateral, NORMAL BREATHING PATTERN - Cardiovascular Exam Cardiovascular Exam: REGULAR RHYTHM, +S1, +S2. absent: Tachycardia - GI/Abdominal Exam GI & Abdominal Exam: Normal Bowel Sounds, Soft. absent: Tenderness - Extremities Exam Additional comments: No calf tenderness No pedal edema No tenderness Pulses 2+ in bilateral upper and lower distal extremities - Back Exam Back exam: absent: CVA tenderness (L), CVA tenderness (R) - Neurological Exam Neurological exam: Alert, Oriented x3 - Psychiatric Exam Psychiatric exam: Normal Affect, Normal Mood - Skin Skin Exam: Dry, Intact, Normal Color, Warm Discharge Plan - Follow Up Plan Condition: GOOD Disposition: HOME/ ROUTINE Additional Instructions: Pt is medically stable for discharge home as per Dr. Dahl Pt should resume home medications as previously prescribed. Pt should follow up with Dr. Bart Ramirez on , 01/19/19, at 9 am for further evaluation. Pt provided information for Dr. Milton, Heme/Onc, for further evaluation of low platelet count noted on bloodwork. Instructions explained to the pt, who understands and agrees with discharge plan. Referrals: Guido Milton MD [Staff Provider] - Bart Ramirez MD [Staff Provider] -
--- NOTE | 2019-01-17 12:34 | RAD ---
HISTORY: cp COMPARISON: Chest x-ray performed 10/18/12 TECHNIQUE: Chest, one view. FINDINGS: Examination limited by habitus. LUNGS: No focal consolidation. Please note that chest x-ray has limited sensitivity for the detection of pulmonary masses. PLEURA: No significant pleural effusion identified. No definite pneumothorax . CARDIOVASCULAR: Heart size appears top normal. Prominence the mediastinum likely exaggerated by aortic ectasia and patient obliquity. Atherosclerotic calcifications of the aorta. OSSEOUS STRUCTURES: Degenerative changes. Evidence of calcific tendinitis, right shoulder. Acromioclavicular arthropathy. VISUALIZED UPPER ABDOMEN: Unremarkable. OTHER FINDINGS: None. IMPRESSION: No focal consolidation. Heart size appears top normal. Prominence the mediastinum likely exaggerated by aortic ectasia and patient obliquity. Atherosclerotic calcifications of the aorta. Degenerative changes. Acromioclavicular arthropathy. Calcific tendinitis, right shoulder.
--- NOTE | 2019-01-17 12:50 | US ---
Date of service: 01/17/2019 HISTORY: thrombocytopena COMPARISON: None. TECHNIQUE: Sonographic evaluation of the abdomen. FINDINGS: LIVER: Measures 17.6 cm. Diffusely increased echogenicity of the liver parenchyma. Consistent with fatty infiltration. Smooth contour. No mass. No biliary ductal dilatation. GALLBLADDER: Unremarkable. No gallstones. COMMON BILE DUCT: Measures 5 mm. No stones. No dilatation. PANCREAS: Unremarkable as visualized. No mass. No ductal dilatation. RIGHT KIDNEY: Measures 11.7cm. Normal echogenicity. No calculus, mass, or hydronephrosis. LEFT KIDNEY: Measures 11.4cm. Normal echogenicity. No calculus, mass, or hydronephrosis. SPLEEN: Normal in size and contour. No mass. AORTA: No aneurysmal dilatation. IVC: Unremarkable. OTHER FINDINGS: None. IMPRESSION: Fatty infiltration of the liver. No evidence of cholelithiasis. No additional abnormality.
[2019-01-17 16:09] VITALS: PULSE 84
--- NOTE | 2019-01-18 06:09 | CARD ---
APPROVED REPORT Date of service: 01/17/2019 EXAM: Two-dimensional and M-mode echocardiogram with Doppler and color Doppler. Other Information Quality : GoodRhythm : INDICATION Dyspnea Chest Pain Tachycardia RISK FACTORS Hypertension Hyperlipidemia 2D DIMENSIONS IVSd0.8 (0.7-1.1cm)LVDd4.0 (3.9-5.9cm) PWd1.0 (0.7-1.1cm)LA [id number] (18-58mL) LVDs2.4 (2.5-4.0cm)FS (%) 40.9 % LVEF (%)72.2 (>50%)LVEF (Thorne's)74 % IVC0.00 cm M-Mode DIMENSIONS Left Atrium (MM)3.89 (2.5-4.0cm)IVSd1.15 (0.7-1.1cm) Aortic Root3.07 (2.2-3.7cm)LVDd6.00 (4.0-5.6cm) Aortic Cusp Exc.2.07 (1.5-2.0cm)PWd1.32 (0.7-1.1cm) FS (%) 45 %LVDs3.30 (2.0-3.8cm) LVEF (%)76 (>50%) Mitral Valve MV E Nigporot28.9cm/sMV A Ygaekhkq831.1cm/sE/A ratio0.7 TDI Lateral E' Peak V11.80cm/sMedial E' Peak V4.80cm/sE/Lateral E'7.5 E/Medial E'18.5 Tricuspid Valve TR Peak Rnclolbm696tn/sTR Peak Gr.[id number] LEFT VENTRICLE The left ventricle is normal size. There is normal left ventricular wall thickness. Left ventricle systolic function is normal. The Ejection Fraction is >70%. There is normal LV segmental wall motion. Diastolic dysfunction. RIGHT VENTRICLE The right ventricle is normal size. There is normal right ventricular wall thickness. The right ventricular systolic function is normal. ATRIA The left atrium size is normal. The right atrium size is normal. The interatrial septum is intact with no evidence for an atrial septal defect. AORTIC VALVE The aortic valve is normal in structure. No aortic regurgitation is present. There is no aortic valvular stenosis. MITRAL VALVE The mitral valve is normal in structure. There is no evidence of mitral valve prolapse. There is no mitral valve stenosis. There is no mitral valve regurgitation noted. TRICUSPID VALVE The tricuspid valve is normal in structure. There is mild tricuspid regurgitation. Right ventricular systolic pressure is estimated at 30-40 mmHg. There is mild pulmonary hypertension. PULMONIC VALVE The pulmonic valve is not well visualized. There is mild pulmonic valvular regurgitation. GREAT VESSELS The aortic root is normal in size. PERICARDIAL EFFUSION There is no significant pericardial effusion. <Conclusion> Left ventricle systolic function is normal. The Ejection Fraction is >70%. Diastolic dysfunction. No aortic regurgitation is present. There is no mitral valve regurgitation noted. There is mild tricuspid regurgitation. There is mild pulmonary hypertension. There is mild pulmonic valvular regurgitation.
[2019-01-20] MEDS ORDERED: Pneumococcal 23-Valent Vaccine IM ONE (10:00)
== END 2019-01-17 17:42 | disposition home or self-care (01) | DRG 143 ==
LOC: C.ER 15:46 → C.9E 19:42 → C.5S 22:33
PROVIDERS: ADMIT Emergency Medicine; ATTEND Emergency Medicine
DX: R07.89 Other chest pain (principal); I10 Essential (primary) hypertension; D69.6 Thrombocytopenia, unspecified; I70.0 Atherosclerosis of aorta; E78.5 Hyperlipidemia, unspecified; E78.00 Pure hypercholesterolemia, unspecified; K76.0 Fatty (change of) liver, not elsewhere classified; Z90.710 Acquired absence of both cervix and uterus; Z82.49 Family history of ischemic heart disease and other diseases of the circulatory system